=== PATIENT | female | born 1960 | race Caucasian/White ===

== ENCOUNTER 2022-01-07 08:27 | Outpatient (REF) | payer OTHER, SELFPAY ==
--- NOTE | 2022-01-07 | EMG_ITS ---
Left median and ulnar motor and sensory studies were performed, left radial and sensory study was performed, and paraspinal muscles were tested with a needle. IMPRESSION: 1. [id number] left median neuropathy across carpal tunnel. 2. [id number] left ulnar neuropathy across cubital tunnel. MD ANNALISA Dent/YAKELIN / [phone]
== END 2022-01-07 08:28 | disposition home or self-care (01) ==
LOC: HO.NEURO 08:27
PROVIDERS: PCP Family Medicine; Visit Provider Orthopaedic Surgery Hand Surgery
DX: M25.532 Pain in left wrist (principal)
CPT/HCPCS: 95886; 95909

== ENCOUNTER → 2023-05-02 13:19 | Outpatient (BNVA) | payer OTHER, SELFPAY | PROVIDERS: PCP Family Medicine; Visit Provider Physician Assistant Medical | DX: S63.502A Unspecified sprain of left wrist, initial encounter (principal); S63.602A Unspecified sprain of left thumb, initial encounter; S56.512A Strain of other extensor muscle, fascia and tendon at forearm level, left arm, initial encounter; S46.812A Strain of other muscles, fascia and tendons at shoulder and upper arm level, left arm, initial encounter; W50.2XXA Accidental twist by another person, initial encounter | CPT/HCPCS: 99202 ==

== ENCOUNTER → 2023-05-09 13:38 | Outpatient (BNVA) | payer OTHER, SELFPAY | PROVIDERS: PCP Family Medicine; Visit Provider Physician Assistant Medical | DX: S63.502D Unspecified sprain of left wrist, subsequent encounter (principal); S63.602D Unspecified sprain of left thumb, subsequent encounter; S46.812D Strain of other muscles, fascia and tendons at shoulder and upper arm level, left arm, subsequent encounter; W50.2XXD Accidental twist by another person, subsequent encounter | CPT/HCPCS: 99213 ==

== ENCOUNTER 2023-05-13 12:12 | Emergency (ER) | payer OTHER, SELFPAY ==
--- NOTE | ~2023-05-13 | XR_ITS ---
EXAMINATION: XR SHOULDER, LEFT CLINICAL INFORMATION: Pain COMPARISON: None available. TECHNIQUE: Three views of the left shoulder. FINDINGS: The humeral head is well positioned over the intact glenoid. Glenohumeral joint space is normal: no arthritic deformity, fracture or subluxation. Acromioclavicular joint is normal for age. The subacromial space is normal. There are no osteophytes projecting from the undersurface of the acromioclavicular joint. No hook-shaped acromion, os acromiale or subacromial enthesophyte. No osseous findings that would predispose to a subacromial impingement disorder. No calcium deposition within rotator cuff tendons. The visualized portion of the left lung is normal. XR/XR shoulder LT min 2V IMPRESSION: Normal left shoulder.
--- NOTE | ~2023-05-13 | XR_ITS ---
EXAMINATION: XR WRIST, LEFT CLINICAL INFORMATION: Pain COMPARISON: None available. TECHNIQUE: PA, lateral, and oblique views of the left wrist. Also, scaphoid view is obtained. FINDINGS: Bones, joints and soft tissues have a normal appearance. No evidence of arthritic deformity, fracture or subluxation. No focal soft tissue swelling. XR/XR wrist LT min 3V IMPRESSION: Normal left wrist.
[2023-05-13 12:28] VITALS: BP 140/69; PULSE 91; RESP 18; TEMP 36.6; O2SAT 99; BMI 35.4
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
== END 2023-05-13 15:18 | disposition home or self-care (01) ==
PROVIDERS: Emergency Provider Emergency Medicine; PCP Family Medicine
DX: S09.90XA Unspecified injury of head, initial encounter (principal); S49.92XA Unspecified injury of left shoulder and upper arm, initial encounter; S63.502A Unspecified sprain of left wrist, initial encounter; M25.512 Pain in left shoulder; W01.10XA Fall on same level from slipping, tripping and stumbling with subsequent striking against unspecified object, initial encounter; Y93.9 Activity, unspecified; Y92.9 Unspecified place or not applicable; Y99.0 Civilian activity done for income or pay
CPT/HCPCS: 73030; 73110; 99283

== ENCOUNTER → 2023-05-31 10:32 | Outpatient (BNVA) | payer OTHER, SELFPAY | PROVIDERS: PCP Family Medicine; Visit Provider Physician Assistant Medical | DX: S63.502D Unspecified sprain of left wrist, subsequent encounter (principal); S46.812D Strain of other muscles, fascia and tendons at shoulder and upper arm level, left arm, subsequent encounter; M25.522 Pain in left elbow; W50.2XXD Accidental twist by another person, subsequent encounter | CPT/HCPCS: 99214 ==

== ENCOUNTER → 2023-06-22 15:15 | Outpatient (BNVA) | payer OTHER, SELFPAY | PROVIDERS: PCP Family Medicine; Visit Provider Physician Assistant Medical | DX: S06.9X0D Unspecified intracranial injury without loss of consciousness, subsequent encounter (principal); S46.912D Strain of unspecified muscle, fascia and tendon at shoulder and upper arm level, left arm, subsequent encounter; S63.501D Unspecified sprain of right wrist, subsequent encounter; S63.502D Unspecified sprain of left wrist, subsequent encounter; W50.2XXD Accidental twist by another person, subsequent encounter | CPT/HCPCS: 99213 ==

== ENCOUNTER → 2023-07-06 15:30 | Outpatient (BNVA) | payer OTHER, SELFPAY | PROVIDERS: PCP Family Medicine; Visit Provider Physician Assistant Medical | DX: S46.912D Strain of unspecified muscle, fascia and tendon at shoulder and upper arm level, left arm, subsequent encounter (principal); S63.502D Unspecified sprain of left wrist, subsequent encounter; S63.611D Unspecified sprain of left index finger, subsequent encounter; W50.2XXD Accidental twist by another person, subsequent encounter | CPT/HCPCS: 29130; 73130; 99214 ==

== ENCOUNTER → 2023-07-13 15:00 | Outpatient (BNVA) | payer OTHER, SELFPAY | PROVIDERS: PCP Family Medicine; Visit Provider Physician Assistant Medical | DX: S63.502D Unspecified sprain of left wrist, subsequent encounter (principal); S63.602D Unspecified sprain of left thumb, subsequent encounter; S46.912D Strain of unspecified muscle, fascia and tendon at shoulder and upper arm level, left arm, subsequent encounter; S63.611D Unspecified sprain of left index finger, subsequent encounter; W50.2XXD Accidental twist by another person, subsequent encounter | CPT/HCPCS: 99213 ==

== ENCOUNTER 2023-08-05 10:35 | Outpatient (AMB) | payer OTHER, SELFPAY ==
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
[2023-08-05 11:01] VITALS: BMI 35.4
== END 2023-08-05 11:39 | disposition home or self-care (01) ==
PROVIDERS: PCP Family Medicine; Visit Provider Physician Assistant
DX: M77.8 Other enthesopathies, not elsewhere classified (principal); M65.4 Radial styloid tenosynovitis [de Quervain]; Z04.2 Encounter for examination and observation following work accident
CPT/HCPCS: 20610; 99203

== ENCOUNTER → 2023-08-05 10:35 | Outpatient (BNVA) | payer OTHER, SELFPAY | PROVIDERS: PCP Family Medicine; Visit Provider Physician Assistant | DX: M75.92 Shoulder lesion, unspecified, left shoulder (principal); M65.4 Radial styloid tenosynovitis [de Quervain] | CPT/HCPCS: 20610; 99202; J1020 ==

== ENCOUNTER → 2023-08-08 15:03 | Outpatient (BNVA) | payer OTHER, SELFPAY | PROVIDERS: PCP Family Medicine; Visit Provider Physician Assistant Medical | DX: S46.912D Strain of unspecified muscle, fascia and tendon at shoulder and upper arm level, left arm, subsequent encounter (principal); S63.502D Unspecified sprain of left wrist, subsequent encounter; W50.2XXD Accidental twist by another person, subsequent encounter | CPT/HCPCS: 99213 ==

== ENCOUNTER → 2023-09-07 15:55 | Outpatient (BNVA) | payer OTHER, SELFPAY | PROVIDERS: PCP Family Medicine; Visit Provider Physician Assistant | DX: M65.4 Radial styloid tenosynovitis [de Quervain] (principal); S56.512D Strain of other extensor muscle, fascia and tendon at forearm level, left arm, subsequent encounter; W50.2XXD Accidental twist by another person, subsequent encounter | CPT/HCPCS: 99213 ==

== ENCOUNTER 2023-09-21 13:22 | Outpatient (AMB) | payer OTHER, SELFPAY ==
--- NOTE | 2023-09-21 13:31 | MHC.OFFVIS ---
Vital Signs 09/21/23 13:40 Height 5 ft 3 in Weight 200 lb BMI 35.4 Intake Visit Reasons: ov- Left shoulder/wrist Intake Note: Maddie a 63 year old right hand dominant female presents today for a WC follow up of left shoulder, thumb and IF pain, DOI 05/02/23. Patient reports injection to her left shoulder on 08/05/23 provided her with some relief. She feels her increase of pain is contributed to her recently moving her things to another school. States constant pain in her shoulder that is radiating down to her wrist. Limited ROM. She continues to do at home exercises. Allergies meperidine [From Demerol] Allergy (Verified 09/21/23 13:33) mood changes morphine Allergy (Verified 09/21/23 13:33) Vomiting tetracycline Allergy (Verified 09/21/23 13:33) Vomiting HPI HPI ov- Left shoulder/wrist: Details: 63-year-old right hand dominant female who returns to the office today for a follow-up of left shoulder and left wrist pain, 05/02/23. She had a left shoulder injection on 08/05/23 which provided her mild relief. She currently states she has limited ROM and constant pain in her shoulder which radiates down to her wrist. She attributes her increased pain to recently moving her things to another school over 2 weeks ago. She continues to do exercises at home. [facility] Social History Patient Tobacco Use Status: Never used Tobacco Current occupational status: employed Current occupation: teacher, right hand dominant Review of Systems Const All systems reviewed & are unremarkable except as noted in HPI and below Physical Exam Vital Signs: BMI result Body Mass Index 35.4 Const General: cooperative, healthy appearing, comfortable, no acute distress, well developed and alert Orientation/consciousness: patient oriented x3 HEENT Head: Yes normal to inspection, Yes normocephalic and Yes atraumatic Eyes General: appearance normal, both eyes and all related structures Resp Effort & Inspection: normal respiratory effort and able to speak in complete sentences Cardio Rate: regular rate Peripheral pulses: Peripheral pulses 2+ throughout GI Palpation (GI): Soft to palpation Skin Lesions: no lesions Rashes: no rashes Neuro General: patient oriented x3 Extrem Other: Left wrist: Without deformity. No swelling. Mild tenderness over the radial styloid. Positive Donny?s. No pain with CMC grind. is able to make a full fist and fully extend all digits. NVI. Office Procedures Joint Injection/Drain Joint Injection/Drain Details: First dorsal compartment left hand Prep: site was prepped using aseptic technique, ethochloride spray was applied and injection warnings given Injected: 40 mg of and decadron Procedure: The patient tolerated the procedure well and there was some relief with the local anesthesia Coding Details: Tendon sheath Procedure code (CPT) selection complete Assessment & Plan Assessment & Plan (1) Left shoulder tendonitis: Code(s): M77.8 - Other enthesopathies, not elsewhere classified Category: Medical (2) De Quervain's tenosynovitis, left: Code(s): M65.4 - Radial styloid tenosynovitis [de Quervain] Category: Medical Plan We discussed options today which include steroid injection. They did consent to move forward with the left wrist injection, which was tolerated well. I recommended rest, ice and elevation and OTC anti-inflammatories PRN for discomfort. If symptoms persist or worsens over the next 6-8 weeks, patient will contact the office, otherwise follow-up as needed. Patient Instructions: Scribed for Carina Bennett PA-C, by Brendon Kapoor medical diagnostic radiographer, on 09/21/2023 at 1:45 PM EST. ICarina PA-C, have personally reviewed and agree with the information entered by the scribe.
[2023-09-21 13:40] VITALS: BMI 35.4
== END 2023-09-21 14:11 | disposition home or self-care (01) ==
PROVIDERS: PCP Family Medicine; Visit Provider Physician Assistant
DX: M77.8 Other enthesopathies, not elsewhere classified (principal); M65.4 Radial styloid tenosynovitis [de Quervain]
CPT/HCPCS: 20550; 99213

== ENCOUNTER → 2023-09-21 13:22 | Outpatient (BNVA) | payer OTHER, SELFPAY | PROVIDERS: PCP Family Medicine; Visit Provider Physician Assistant | DX: M65.4 Radial styloid tenosynovitis [de Quervain] (principal); M77.8 Other enthesopathies, not elsewhere classified | CPT/HCPCS: 20550; 99212; J1100 ==

== ENCOUNTER → 2023-10-06 15:03 | Outpatient (BNVA) | payer OTHER, SELFPAY | PROVIDERS: PCP Family Medicine; Visit Provider Physician Assistant Medical | DX: M25.512 Pain in left shoulder (principal); M65.4 Radial styloid tenosynovitis [de Quervain]; M79.645 Pain in left finger(s) | CPT/HCPCS: 99213 ==

== ENCOUNTER → 2023-12-13 12:29 | Outpatient (BNVA) | payer OTHER, SELFPAY | PROVIDERS: PCP Family Medicine; Visit Provider Physician Assistant Medical | DX: M79.645 Pain in left finger(s) (principal); M75.102 Unspecified rotator cuff tear or rupture of left shoulder, not specified as traumatic; M65.4 Radial styloid tenosynovitis [de Quervain] | CPT/HCPCS: 99213 ==